=== PATIENT | female | born 1960 | race Two or more races ===

== ENCOUNTER 2018-02-19 10:33 | Outpatient (CLI) | payer OTHER | END 2018-02-19 10:48 | disposition home or self-care (01) | LOC: MAMO-SONO 10:33 | DX: N62 Hypertrophy of breast (principal); Z12.31 Encounter for screening mammogram for malignant neoplasm of breast ==

== ENCOUNTER 2018-02-25 07:25 | Outpatient (CLI) | payer OTHER | END 2018-02-25 07:32 | disposition home or self-care (01) | LOC: NUCLEAR 07:25 | DX: I89.8 Other specified noninfective disorders of lymphatic vessels and lymph nodes (principal); I87.2 Venous insufficiency (chronic) (peripheral) ==

== ENCOUNTER 2019-01-26 09:06 | Outpatient (CLI) | payer OTHER | END 2019-01-26 09:14 | disposition home or self-care (01) | LOC: RAD 501 09:06 | DX: M25.572 Pain in left ankle and joints of left foot (principal); S20.219A Contusion of unspecified front wall of thorax, initial encounter ==

== ENCOUNTER → 2019-02-14 | Outpatient (CLI) | payer OTHER | END | disposition home or self-care (01) | LOC: NUCLEAR 14:00 | DX: M81.0 Age-related osteoporosis without current pathological fracture (principal) ==

== ENCOUNTER 2019-11-25 12:04 | Inpatient (IN) | payer OTHER ==
[~2019-11-25] VITALS: Ht 182.9 cm; Wt 5.0 kg
[2019-11-28] MEDS ORDERED: MESALAMINE800 MG PO (08:05)
[2019-11-28] MEDS ORDERED: FLAGYL500MG PO (08:09)
[2019-11-28] MEDS ORDERED: CIPRO500 MG PO (08:10)
== END 2019-12-03 11:56 | disposition home or self-care (01) | DRG 392 ==
LOC: MEDJ 12:04
PROVIDERS: ADMIT Internal Medicine Cardiovascular Disease
PROC: BW21YZZ Computerized Tomography (CT Scan) of Abdomen and Pelvis using Other Contrast (ICD-10-PCS; principal; 2019-11-25)
DX: K52.89 Other specified noninfective gastroenteritis and colitis (principal); K63.3 Ulcer of intestine; K57.30 Diverticulosis of large intestine without perforation or abscess without bleeding
CPT/HCPCS: 240

== ENCOUNTER 2020-05-23 11:41 | Outpatient (CLI) | payer OTHER ==
[~2020-05-23 11:41] MED LIST: CIPRO500 MG PO; FLAGYL500MG PO; MESALAMINE800 MG PO
== END 2020-05-23 12:28 | disposition home or self-care (01) ==
LOC: NUCLEAR 11:41
PROVIDERS: ATTEND Orthopaedic Surgery
DX: M81.0 Age-related osteoporosis without current pathological fracture (principal)

== ENCOUNTER 2022-05-28 10:13 | Outpatient (CLI) | payer OTHER | END 2022-05-28 10:18 | disposition home or self-care (01) | LOC: NUCLEAR 10:13 | PROVIDERS: ATTEND Orthopaedic Surgery | DX: M81.0 Age-related osteoporosis without current pathological fracture (principal) ==

== ENCOUNTER 2023-05-15 14:04 | Outpatient (CLI) | payer OTHER | END 2023-05-15 14:20 | disposition home or self-care (01) | LOC: MRI 14:04 | DX: R22.31 Localized swelling, mass and lump, right upper limb (principal) | CPT/HCPCS: 73218 ==

== ENCOUNTER 2025-03-17 12:17 | Outpatient (CLI) | payer OTHER | END 2025-03-17 12:18 | disposition home or self-care (01) | LOC: NUCLEAR 12:17 | PROVIDERS: ATTEND Orthopaedic Surgery | DX: M81.0 Age-related osteoporosis without current pathological fracture (principal) ==